=== PATIENT | female | born 1955 | race American Indian/Alaskan Native ===

== ENCOUNTER 2016-07-20 11:25 | Day surgery (SDC) | payer BC ==
[2013-05-18 16:31] VITALS: BMI 32.3
[2016-07-20] MEDS ORDERED: Lidocaine 2% Inj (20ml) ONE (12:33)
[2016-07-20] MEDS ORDERED: Propofol 10 mg/ml Inj (20 ML) ONE (12:33)
[2016-07-20] MEDS ORDERED: Lactated Ringer's 1,000 ML IV SCH (13:15)
[2016-07-20 13:46] VITALS: RESP 16
[2016-07-20 14:26] VITALS: BP 134/76; PULSE 73; TEMP 97.9; O2SAT 98
== END 2016-07-20 14:30 | disposition home or self-care (01) ==
LOC: ENDO 11:25
PROVIDERS: ATTEND Internal Medicine Gastroenterology
DX: Z12.11 Encounter for screening for malignant neoplasm of colon (principal); D12.2 Benign neoplasm of ascending colon; D12.4 Benign neoplasm of descending colon; D12.3 Benign neoplasm of transverse colon; K57.30 Diverticulosis of large intestine without perforation or abscess without bleeding; K64.8 Other hemorrhoids; I10 Essential (primary) hypertension
CPT/HCPCS: 45385; 88305; J2704; J7040; J7120